=== PATIENT | female | born 1965 | race Caucasian/White ===

== ENCOUNTER 2016-05-19 12:46 | Inpatient (IN) | payer MEDICAID ==
[~2016-05-19 12:46] MED LIST: ceFAZolin 2 GM/DEXTROSE 100 ML IV ONE
--- NOTE | 2016-05-19 12:57 | GHP ---
DATE OF ADMISSION: 05/19/2016 CHIEF COMPLAINT: Right wrist fracture. HISTORY OF PRESENT ILLNESS: The patient is a pleasant 51-year-old female who presents with a right wrist fracture and ulnar styloid fracture sustained on 04/2015 after a fall resulting from a syncopal episode. The patient was initially immobilized in a cast, but subsequent radiographs on followup revealed a malunion alignment. She subsequently had been treated with a short- arm cast immobilization, and is to undergo a planned open reduction and internal fixation of the right distal radius with an iliac crest bone graft scheduled to be performed today at [facility], 05/19/2016, by Dr. Bolivar Lu. PAST MEDICAL HISTORY: The patient has a past medical history consisting of aortic valve disease, mitral valve disease, history of vasovagal syncope, Sarah syndrome, hypothyroidism, chronic opiate use/tolerance, systemic lupus erythematosus, chronic pain/fibromyalgia, arthritis, history of pulmonary embolism, and history of malignant hyperthermia. PAST SURGICAL HISTORY: Aortic valve replacement, mitral valve replacement, open reduction and internal fixation of the left wrist, tonsillectomy. CURRENT MEDICATIONS: Synthroid, lisinopril, Lasix, OxyContin, Zofran, doxycycline, warfarin, enoxaparin. ALLERGIES: Morphine, Reglan, sulfa medications, Compazine. SOCIAL HISTORY: Patient reports 1 pack per day current tobacco use. She denies any recreational drug use, as well as any current alcohol consumption. FAMILY HISTORY: Pt reports a possible family hx of malignant hyperthermia. No additional significant contributory family history is reported today. REVIEW OF SYSTEMS: A 10-point review of systems was performed with no additional concerns, complaints, or abnormal findings not noted in the HPI or PMH. PHYSICAL EXAMINATION: GENERAL: NAD, cooperative and pleasant for exam. HEENT: NCAT. EOMI. PERRLA. Ears and nares are patent and without discharge. OP is clear. NECK: NTTP, full ROM, supple. Negative Lhermitte's and Spurling's, right and left. No cervical LAD noted. CARDIOVASCULAR: RRR, without m/g/r. RESPIRATORY: CTAB, no increased WOB noted. ABDOMEN: Soft. NT/ND. No HSM noted. MUSCULOSKELETAL: Right wrist is compared to left for exam purposes. Examination of the right wrist reveals an intact short-arm cast, and patient is neurovascularly intact with application. Cast was removed, revealing TTP over the right distal radius with palpable deformity. The remainder of the right wrist reveals NTTP of the carpals, metacarpals, digits 1-5. Patient is able to make a light composite fist, and flexion/extension of the fingers is noted to be WNL. Capillary refill is less than 2 seconds in the finger pulse. Elbow range of motion is WNL. Elbow exam is benign. Patient demonstrates significant stiffness and restriction in range of motion in both flexion and extension of the right wrist. Radial and ulnar pulses are intact and equal compared bilaterally. The patient is neurovascularly intact to light touch sensation and equal compared bilaterally. SKIN: Please see above dictation concerning right wrist. No additional ecchymosis, erythema, calor, or edema is noted. No other rashes or lesions. NEUROLOGIC: Nonfocal, no deficits noted. DTRs are grade 1+ bilaterally in the UE and LE with symmetry. No clonus. PSYCH: A and O x3, appropriate mood and affect. RADIOLOGIC DATA: Two views of the right wrist were reviewed today, showing a right distal radius fracture with dorsal angulation. ASSESSMENT: Right distal radius malunion (ICD-10: S52.501P). PLAN: At this time, after discussion of treatment options with the patient, she has agreed to proceed with an open reduction and internal fixation of the right distal radius malunion with an iliac crest bone graft to be performed at [facility] on 05/19/[address] Lu. Risks, benefits, and alternatives of surgery were discussed with the patient in detail and signed informed consent was obtained. All additional paperwork for [facility] was also completed. All the patient's questions were answered today, and her concerns addressed. She will be seen in 10-14 days postoperatively for a wound check and suture removal. She appears pleased with the care she has received, and is encouraged to return to clinic sooner with any additional concerns or complaints. The patient has also received cardiac clearance from [facility], specifically from her head of art, Dr. Morse, clearing her to have this procedure performed. They have also consulted anticoagulation management, which includes having the patient stop her warfarin on 05/12/2016, and bridge with Lovenox 40 mg b.i.d. preoperatively. She has been instructed to discontinue her Lovenox 24 hours prior to her procedure, and then will resume both her b.i.d. Lovenox 40 mg, as well as warfarin postoperatively until she is therapeutic. She will continue to follow with outpatient lab work for PT/INR testing beginning on 05/24/2016, at which point she will be seen in clinic at [facility] as an outpatient. This plan has been reviewed with the patient, who has repeated it and demonstrated her understanding. Again, all the patient' s questions were answered today, and her concerns addressed. She appears pleased with the care she has received today. /[id number]/MODL MTDD
[2016-05-19] MEDS ORDERED: BUPIVACAINE 0.5% 30 ML SDV ONE (13:09)
[2016-05-19] MEDS ORDERED: CEFAZOLIN 2 GM/DEXTROSE/100 ML BAG IV ONE (13:23)
[2016-05-19] MEDS ORDERED: LIDOCAINE 1% 5 ML SDV ONE (13:23)
[2016-05-19] MEDS ORDERED: ceFAZolin 2 GM/DEXTROSE 100 ML IV ONE (14:00)
[2016-05-19] MEDS ORDERED: MIDAZOLAM 2 MG/2 ML VIAL ONE (14:27)
[2016-05-19] MEDS ORDERED: fentaNYL 100 MCG/2 ML INJ ONE ×2 (14:30→17:52)
[2016-05-19] MEDS ORDERED: PROPOFOL/EMULSION 500 MG/50 ML BOTTLE IV ONE ×2 (14:30→15:42)
[2016-05-19 14:32] LABS: INR 0.91 (0.83-1.16); PROTIME(PATIENT) 12.2 SEC (12.0-15.0)
[2016-05-19] MEDS ORDERED: LIDOCAINE 2% 5 ML SDV ONE (14:34)
[2016-05-19] MEDS ORDERED: PROPOFOL 200 MG/20 ML VIAL ONE (14:40)
[2016-05-19] MEDS ORDERED: HYDROmorphONE/DILAUDID 2 MG/ML INJ ONE ×2 (15:01→17:11)
[2016-05-19] MEDS ORDERED: DEXAMETHASONE 4 MG/ML VIAL ONE (16:16)
[2016-05-19] MEDS ORDERED: ONDANSETRON 4 MG/2 ML VIAL ONE ×2 (16:16→16:30)
[2016-05-19] MEDS ORDERED: DIPHENOXYLATE/ATROPINE LOMOTIL 1 TAB PO PRN (17:07)
[2016-05-19] MEDS ORDERED: ONDANSETRON 4 MG/2 ML VIAL IVP PRN (17:07)
[2016-05-19] MEDS ORDERED: diphenhydrAMINE 25 MG CAP PO PRN (17:07)
[2016-05-19] MEDS ORDERED: ONDANSETRON DISINTEGRATING 4 MG TAB PO PRN (17:07)
--- NOTE | 2016-05-19 17:07 | POSTOPPROG ---
Post Op Note Date of Operation: 05/19/16 Surgeon: Bolivar Lu Automatic Brine Mixer Operator: Ozzy Swanson PA-c Anesthesiologist: Jaren Pre-op Diagnosis: Right distal radius malunion Post-op Diagnosis: Right distal radius malunion Indication: Radiographic evidence of malunion Procedure: ORIF of right distal radius w/ iliac crest bone graft Findings: As above, please see full dictation for details Inf/Abcess present in the surg proc area at time of surgery?: No Depth: Deep Incisional (Fascial) EBL: Minimal Complications: none
[2016-05-19] MEDS ORDERED: NS 1,000 ML IV SCH (17:15)
[2016-05-19] MEDS ORDERED: D50W 25 GM/50 ML SYR IVP PRN (17:21)
[2016-05-19] MEDS ORDERED: NALOXONE HCL 0.4 MG/ML INJ IVP PRN (17:21)
[2016-05-19] MEDS ORDERED: DICYCLOMINE 20 MG TAB PO PRN (17:24)
[2016-05-19] MEDS: CYCLOBENZAPRINE 10 MG TAB PO PRN (19:02)
[2016-05-19] MEDS: oxyCODONE IR 5 MG TAB PO PRN ×2 (19:02→23:15)
[2016-05-19 19:14] LABS: COLOR PALE YELLOW; LEUKOCYTE ESTERASE,URINE NEGATIVE (NEGATIVE); NITRITE,URINE NEGATIVE (NEGATIVE)
[2016-05-19] MEDS ORDERED: WARFARIN SODIUM 5 MG TAB PO ONE (19:30)
--- NOTE | 2016-05-19 19:38 | GOP ---
DATE OF OPERATION: SURGEON: Bolivar Lu MD SAW MAKER: Reddy Swanson PA-C ANESTHESIA: General. PREOPERATIVE DIAGNOSIS: Malunion, right distal radius fracture. POSTOPERATIVE DIAGNOSIS: Malunion, right distal radius fracture. PROCEDURE PERFORMED: Corrective osteotomy, right distal radius malunion with iliac crest bone graft . FINDINGS: DESCRIPTION OF PROCEDURE: The patient was taken to the operating room, administered general anesthe ricky, placed in the supine position. The right upper extremity was prepped and draped in normal ster ile fashion. The right hip was also prepped and draped in normal sterile fashion. Esmarch exsangui nation was performed of the right upper extremity. The tourniquet was elevated to 225 mmHg pressure . A radial incision was made along the FCR tendon. It was carried through dermal subcutaneous tiss ues and extended down through the tendon sheath. The pronator quadratus was then reflected. The no nunion site was visualized. We dissected the brachioradialis tendon off the radial styloid, leaving this distal segment to re-attach. The dorsal capsule was then reflected subperiosteally. The oste otomy was then made in the metaphyseal area. We were able to leave this open after detaching the do rsal periosteal attachment. The right hip was then addressed. The anterior iliac crest was utilize d for the graft. The incision was made approximately 4 cm lateral to the ASIS along the crest. Thi s was carried through dermal subcutaneous tissues. Sharp and blunt dissection was performed down to the level of the crest. Using cautery, the periosteum was reflected initially over the apex of the crest. Subperiosteal elevation was then performed with a small elevator. The wafer of bone was th en harvested using the oscillating saw in a V fashion. This V wafer of bone was then removed. A we t 4 x 4 was placed inside the hip incision. We then readdressed the radius. The osteotomy site was pried open. The graft was wedged in a manner so that the radius was reflected slightly ulnarly and volarly. We then used a 3-hole distal radial plate with locking screws distally. The locking scre ws were used to fixate the distal osteotomy fracture segment. The proximal plate was then used to l ever this into the volar flexed position. Three 2.7 screws were used proximally. Three 2.4 mm scre ws were used distally in a locking fashion. Thorough lavage performed with normal saline. Intraope rative radiographs were taken, which showed very good position of our osteotomy, having corrected th e radial deviation and dorsally flexed position of the malunited fracture segment. An attempt was m renee to close the pronator quadratus, but this was not successful. We did reapproximate the Z-shaped incision in the brachioradialis to the radial styloid process. We then closed the subcutaneous tis sues with a 4-0 Vicryl suture followed by closure of the dermis with 4-0 Ethilon. A sterile dressin g was applied followed by a coaptation splint. The hip incision was thoroughly irrigated. We impre gnated the exposed trabecular bone with bone wax to prevent any bleeding. The fascial layer was the n closed with a #0 Vicryl suture in an interrupted [id number] fashion. The subcutaneous tissue s were closed with a 3-0 Vicryl suture, followed by closure of the dermis with a 3-0 Ethilon. A fran rile compression dressing was applied. The patient tolerated the procedure well, and was transferre d back to the recovery room in stable condition. There were no operative complications. COMPLICATIONS: None. /[id number]/MODL
[2016-05-19] MEDS: HYDROmorphONE/DILAUDID 1 MG/ML SYR IVP PRN (21:28)
[2016-05-19] MEDS: clonazePAM 1 MG TAB PO SCH (21:41)
[2016-05-19] MEDS: FAMOTIDINE 20 MG TAB PO SCH (21:41)
[2016-05-19] MEDS: ENOXAPARIN 40 MG/0.4 ML SYR SC SCH (21:42)
[2016-05-19] MEDS: LR 1,000 ML IV SCH (21:44)
[2016-05-19] MEDS: ceFAZolin 2 GM in D5W 100 ML IV SCH (21:44)
[2016-05-19] MEDS ORDERED: ceFAZolin 2 GM/DEXTROSE 100 ML IV SCH (22:00)
[2016-05-20] MEDS: HYDROmorphONE/DILAUDID 6 MG/30 ML PCA IV PRN ×2 (01:18→10:05)
[2016-05-20] MEDS: diphenhydrAMINE 50 MG CAP PO PRN ×2 (02:40→20:32)
[2016-05-20 05:29] LABS: HEMATOCRIT 35.3 % (38.0-47.0); HEMOGLOBIN 11.6 g/dL (12.6-16.3)
[2016-05-20] MEDS: LEVOTHYROXINE 50 MCG TAB PO SCH (05:31)
[2016-05-20] MEDS: ceFAZolin 2 GM in D5W 100 ML IV SCH (05:35)
[2016-05-20] MEDS: LR 1,000 ML IV SCH (05:38)
[2016-05-20] MEDS: PANTOPRAZOLE SODIUM 40 MG TAB PO SCH (08:17)
[2016-05-20] MEDS: FUROSEMIDE 20 MG TAB PO SCH ×2 (08:17→15:38)
[2016-05-20] MEDS: FAMOTIDINE 20 MG TAB PO SCH ×2 (08:17→20:32)
[2016-05-20] MEDS: ENOXAPARIN 40 MG/0.4 ML SYR SC SCH ×2 (08:17→20:32)
[2016-05-20] MEDS: clonazePAM 1 MG TAB PO SCH ×3 (08:17→20:31)
[2016-05-20] MEDS: NICOTINE 14 MG/24 HR PATCH TD SCH (08:17)
[2016-05-20] MEDS ORDERED: RABEPRAZOLE SODIUM 20 MG PO SCH (09:00)
[2016-05-20] MEDS ORDERED: OXYCODONE IR PO PRN (11:29)
[2016-05-20] MEDS ORDERED: NON-FORMULARY NEW DRUG (Oxycodone Hcl [Oxycontin] 60 MG) PO SCH (11:30)
--- NOTE | 2016-05-20 11:42 | SOAPPROG ---
SOAP Progress Note Assessment/Plan: Assessment/Plan: s/p corrective osteotomy R distal radius using iliac crest bone graft - Continue pain management- transition to PO pain medications - Nicotine patch ordered - Continue SCDs/TEDs for mechanical prophylaxis - Lovenox and coumadin for VTE chemoprophylaxis - Remain NWB RUE - Elbow and shoulder ROM okay - Discharge dependant on pain control 05/20/16 11:39 Subjective: Pt states the pain in her R arm has been a 9/10; she is having no pain in the R hip area. Pt would like a nicotine patch. Pt denies fever, chills, SOB, chest pain, abdominal pain, N/V/D, numbness, tingling, and calf pain. Objective: Vital Signs Temp Pulse Resp BP Pulse Ox 36.6 C 86 14 167/92 H 97 05/20/16 07:22 05/20/16 09:55 05/20/16 09:55 05/20/16 09:55 05/20/16 09:55 Laboratory Results 05/20/16 05:08 05/19/16 05/20/16 05/21/16 05:59 05:59 05:59 Intake Total 1528 Output Total 1110 500 Balance 418 -500 PT 12.2 SEC (12.0-15.0) 05/19/16 14:16 INR 0.91 (0.83-1.16) 05/19/16 14:16 Physical Exam - Physical Exam General Appearance: alert, no apparent distress Skin: normal color, warm/dry Extremities: normal inspection, normal capillary refill, swelling (R fingertips) , other (Post-op dressings and splint intact, sling RUE), No pedal edema, No calf tenderness, No Linda's sign Neuro/Psych: no motor/sensory deficits, alert, normal mood/affect ICD10 Worksheet Patient Problems: Problems Problem Status Onset Fracture of distal end of radius with malunion Acute - ICD10 Problem Qualifiers (1) Fracture of distal end of radius with malunion Qualifiers: Encounter type: subsequent encounter Fracture type: closed Open fracture type: O Fracture morphology: F Fracture alignment: F Laterality: right
[2016-05-20] MEDS: oxyCODONE IR 5 MG TAB PO PRN ×3 (11:43→22:21)
[2016-05-20] MEDS: oxyCODONE CR 30 MG TAB PO SCH ×2 (11:44→20:31)
[2016-05-20] MEDS ORDERED: WARFARIN SODIUM 5 MG TAB PO SCH (16:00)
--- NOTE | 2016-05-20 16:06 | PDGENHP ---
History and Physical History and Physical: CONSULTATION HISTORY AND PHYSICAL CC: I AM ASKED BY DR. MCNEAL TO EVALUATE AND ASSIST IN THE CARE OF THIS PATIENT WHO IS 1 DAY POSTOP OPEN REDUCTION INTERNAL FIXATION OF THE RADIAL FRACTURE WITH NONUNION, WITH A LONG LIST OF MEDICAL ISSUES HISTORY: This patient apparently fell in February with a wrist fracture and was casted. On recent re-evaluation she was found to have a malunion of the distal radius and was brought in yesterday to this hospital for elective repair. She underwent open reduction internal fixation which was successful and uncomplicated. At this time as I am seeing the patient she is still having ongoing pain that is not ideally controlled and is having somewhat inconsistent pain relief. She is using a MOTTLE LAY UP OPERATOR for pain relief here. At home however she uses 60 mg of OxyContin twice daily as well as some short-acting oxycodone. This is for some chronic pains including migraines abdomen and other pains. Her main pain at this time is in her wrist however. She has had some mild nausea but is eating well. There is no fever symptoms no shortness of breath no chest symptoms no headaches no neurologic symptoms today ROS: A comprehensive 10 system review revealed no other significant findings PAST MEDICAL HISTORY: Migraine headaches Status post aortic and mitral valve replacements on anticoagulation History of pulmonary embolism Daniella's granulomatosis Hypothyroidism Lupus Chronic pain syndrome on chronic daily prescribed narcotic Fibromyalgia Malignant hyperthermia and Tonsillectomy FAMILY MEDICAL HISTORY: Question of possible malignant hyperthermia SOCIAL HISTORY: Still smokes 1 pack of cigarettes daily, no significant alcohol or drug use PHYSICAL EXAMINATION: Vital Signs: Some mild hypertension otherwise stable without fever Examination: General: alert, oriented, good mentation, relaxed Skin: warm, dry, good color, no rash HEENT: normal Neck: no mass or jvd Resps: relaxed Lungs: clear breath sounds Heart: regular, no murmur Abdomen: soft, nondistended, nontender, +BS, no mass Upper Extremities: Her wrist is in bandages and splint but fingertips are warm with good color and she has sensation Lower Extremities: no edema, warm No Bleeding or bruising Neurologic: normal speech/language, normal dividend clerk, no focal weakness IV site: looks normal LABORATORY DATA: Hemoglobin was checked today and is stable ASSESSMENT: -status post ORIF of malunion distal radius after wrist fracture -inadequate pain control; I suspect that she will actually do better if we have her back on her usual long-acting OxyContin and use oral medicines as post using IV or MOTTLE LAY UP OPERATOR at this time given her large doses of chronic home narcotic use. I have ordered resumption of her OxyContin and will follow however doing -history of mitral and aortic valve replacements requiring anticoagulation. The patient is chronically on Coumadin but currently at this point is on bridging with adequate dosing of Lovenox and will restart her Coumadin today. There is no sign of bleeding or other complications - stated history of Daniella's disease and lupus with no current symptoms or findings of an autoimmune syndrome -stated history of malignant hyperthermia with need to avoid triggering medications -high risk of DVT with history in the past of PE, is on chronic anticoagulation currently on full-dose bridging therapy PLANS: -resume her long-acting oral narcotic at this time and if things are reasonably stable would transition to all oral narcotics at this time with only use of as needed additional rescue as IV -continue bridging with Lovenox and resume her Coumadin with daily INR checks for now -Early mobilization -as she has bone graft in her wrist now I presume we need to avoid nonsteroidal anti-inflammatories but will review with Dr. Mcneal
[2016-05-20] MEDS: HYDROmorphONE/DILAUDID 1 MG/ML SYR IVP PRN ×2 (16:28→23:06)
[2016-05-21] MEDS: CYCLOBENZAPRINE 10 MG TAB PO PRN (01:44)
[2016-05-21] MEDS: oxyCODONE IR 5 MG TAB PO PRN ×4 (01:44→12:28)
[2016-05-21 04:42] VITALS: RESP 18
[2016-05-21] MEDS ORDERED: PNEUMOCOCCAL 0.5ML VACCINE VIAL IM ONE (04:55)
[2016-05-21] MEDS: LEVOTHYROXINE 50 MCG TAB PO SCH (05:00)
[2016-05-21 05:32] LABS: HEMATOCRIT 40.1 % (38.0-47.0)
[2016-05-21 05:58] LABS: INR 1.51 (0.83-1.16); PROTIME(PATIENT) 18.2 SEC (12.0-15.0)
[2016-05-21] MEDS: PANTOPRAZOLE SODIUM 40 MG TAB PO SCH (08:03)
[2016-05-21] MEDS: oxyCODONE CR 30 MG TAB PO SCH (08:03)
[2016-05-21] MEDS: FUROSEMIDE 20 MG TAB PO SCH (08:03)
[2016-05-21] MEDS: FAMOTIDINE 20 MG TAB PO SCH (08:03)
[2016-05-21] MEDS: clonazePAM 1 MG TAB PO SCH (08:03)
[2016-05-21] MEDS: NICOTINE 14 MG/24 HR PATCH TD SCH (08:04)
[2016-05-21] MEDS: ENOXAPARIN 40 MG/0.4 ML SYR SC SCH (08:04)
[2016-05-21 08:29] VITALS: BP 119/65; PULSE 82; TEMP 98.4; O2SAT 99
[2016-05-21] MEDS ORDERED: WARFARIN SODIUM 2.5 MG TAB PO SCH (09:00)
--- NOTE | 2016-05-21 09:44 | SOAPPROG ---
SOAP Progress Note Assessment/Plan: Assessment/Plan: s/p corrective osteotomy R distal radius using iliac crest bone graft POD#2 - Continue pain management- transition to PO pain medications - Continue SCDs/TEDs for mechanical prophylaxis - Lovenox and coumadin for VTE chemoprophylaxis - Remain NWB RUE - Elbow and shoulder ROM okay - Encourage active and passive ROM of right fingers - Discharge to home today 05/20/16 11:39 05/21/16 09:41 Subjective: Pt states she has still had a lot of pain in the right arm, but is ready to go home. Pt denies fever, chills, chest pain, SOB, abdominal pain, N/V/D, calf pain , numbness and tingling. Objective: Vital Signs Temp Pulse Resp BP Pulse Ox 36.9 C 82 18 119/65 99 05/21/16 08:00 05/21/16 08:00 05/21/16 08:00 05/21/16 08:00 05/21/16 08:00 Laboratory Results 05/21/16 04:41 05/20/16 05/21/16 05/22/16 05:59 05:59 05:59 Intake Total 1528 1050 Output Total 1110 950 Balance 418 100 PT 18.2 SEC (12.0-15.0) H 05/21/16 04:41 INR 1.51 (0.83-1.16) H 05/21/16 04:41 Physical Exam - Physical Exam General Appearance: alert, no apparent distress Skin: normal color, warm/dry Extremities: normal capillary refill, swelling (R fingertips), other (Post- operative splint and dressing intact RUE, hip incision c/d/i), No pedal edema, No calf tenderness, No Linda's sign Neuro/Psych: no motor/sensory deficits, alert, normal mood/affect ICD10 Worksheet Patient Problems: Problems Problem Status Onset Fracture of distal end of radius with malunion Acute - ICD10 Problem Qualifiers (1) Fracture of distal end of radius with malunion Qualifiers: Encounter type: subsequent encounter Fracture type: closed Open fracture type: O Fracture morphology: F Fracture alignment: F Laterality: right
--- NOTE | 2016-05-21 13:39 | PDDCSUM ---
Discharge Summary Discharge Summary: 51y/o F was admitted to the hospital on 05/19/2016, for corrective osteotomy right distal radius fracture using iliac crest bone grafting, for malunion of a right distal radius fracture. Hospitalist was consulted post-operatively. Pt was given Ancef q8hrs x 24 hours post-operatively for infection prophylaxis. VTE chemoprophylaxis with Lovenox 40mcg BID bridge until INR level is appropriate with Coumadin 2.5mg daily. SCDs/TEDs for mechanical prophylaxis. Pt remains NWB RUE. Pt was evaluated by PT without concerns. Follow-up is in place with pts chief steward/stewardess 05/28/2016, and an INR check 05/24/2016. Hospital course was otherwise uneventful.
== END 2016-05-21 13:23 | disposition home or self-care (01) | DRG 512 ==
LOC: F3N 12:46
PROVIDERS: ADMIT Orthopaedic Surgery Sports Medicine; ATTEND Orthopaedic Surgery Sports Medicine
PROC: 0QB20ZZ Excision of Right Pelvic Bone, Open Approach (ICD-10-PCS; principal; 2016-05-19 14:00)
PROC: 0P8 Upper Bones, Division (ICD-10-PCS; principal; 2016-05-19 14:00)
PROC: 0PSH04Z Reposition Right Radius with Internal Fixation Device, Open Approach (ICD-10-PCS; principal; 2016-05-19 14:00)
DX: S52.511P Displaced fracture of right radial styloid process, subsequent encounter for closed fracture with malunion (principal); W18.39XD Other fall on same level, subsequent encounter; E03.9 Hypothyroidism, unspecified; M32.9 Systemic lupus erythematosus, unspecified; M79.7 Fibromyalgia; Z72.0 Tobacco use; Z95.4 Presence of other heart-valve replacement; Z86.711 Personal history of pulmonary embolism
CPT/HCPCS: 97161-GP; 97166-GO; 97535-GO; C1713; J0690; J1100; J1170; J1650; J2250; J2405; J2704; J3010